=== PATIENT | female | born 1965 | race Two or more races ===

== ENCOUNTER 2022-03-22 21:28 | Emergency (ER) | payer MEDICAID ==
[~2022-03-22] VITALS: Ht 160 cm; Wt 70.3 kg
[2022-03-22] MEDS ORDERED: FAMOTIDINE (10MG/ML) 2ML VL IV ONE (21:30)
[2022-03-22] MEDS ORDERED: diphenhdrAMINE HCL 50 MG/1 ML VL IV ONE (21:30)
[2022-03-22] MEDS ORDERED: EPINEPHrine HCL 1 MG/1 ML AMP IM ONE (21:30)
[2022-03-22] MEDS ORDERED: DexAMETHasone SOD PHOS 10MG/1ML VIAL INJ IV ONE (21:30)
[2022-03-22 21:35] VITALS: BP 127/67
== END 2022-03-22 22:09 | disposition left against medical advice (07) ==
LOC: ER 21:28
DX: T78.2XXA Anaphylactic shock, unspecified, initial encounter (principal); Z91.030 Bee allergy status
CPT/HCPCS: 96372; 96374; 96375; 99284; J0171; J1100; J1200; J3490